=== PATIENT | male | born 1940 ===

== ENCOUNTER 2017-07-24 08:08 | Outpatient (CLI) | payer OTHER ==
[~2017-07-24] VITALS: Ht 152.4 cm; Wt 80.3 kg
== END 2017-07-24 08:20 | disposition home or self-care (01) ==
LOC: OFIC 805 08:08
DX: H90.3 Sensorineural hearing loss, bilateral (principal); H93.13 Tinnitus, bilateral; R42 Dizziness and giddiness; H61.23 Impacted cerumen, bilateral

== ENCOUNTER 2017-08-28 07:27 | Outpatient (CLI) | payer OTHER ==
[~2017-08-28] VITALS: Ht 152.4 cm; Wt 79.4 kg
== END 2017-08-28 07:45 | disposition home or self-care (01) ==
LOC: OFIC 805 07:27
DX: H93.13 Tinnitus, bilateral (principal); R42 Dizziness and giddiness

== ENCOUNTER 2017-12-25 08:33 | Outpatient (CLI) | payer OTHER ==
[~2017-12-25] VITALS: Ht 152.4 cm; Wt 80.3 kg
== END 2017-12-25 08:50 | disposition home or self-care (01) ==
LOC: OFIC 805 08:33
DX: H61.23 Impacted cerumen, bilateral (principal); H93.13 Tinnitus, bilateral; H90.3 Sensorineural hearing loss, bilateral; M26.69 Other specified disorders of temporomandibular joint

== ENCOUNTER 2019-09-26 08:49 | Outpatient (CLI) | payer OTHER ==
[2019-09-26] MEDS ORDERED: NEO-POLYMYXIN-H10 M2 OTIC (10:44)
== END 2019-09-26 12:46 | disposition home or self-care (01) ==
LOC: OFIC 805 08:49
PROVIDERS: ATTEND Otolaryngology
DX: H92.01 Otalgia, right ear (principal); H90.3 Sensorineural hearing loss, bilateral; H61.23 Impacted cerumen, bilateral